=== PATIENT | female | born 1955 | race Caucasian/White ===

== ENCOUNTER 2016-08-01 14:04 | Inpatient (IN) | payer OTHER, MEDICARE, MEDICAID ==
--- NOTE | 2016-08-01 14:14 | ER Document Report ---
ED Medical Screen (RME) - General Stated Complaint: SHAKEY Mode of Arrival: Wheelchair Information source: Patient, Relative - SON Notes: Patient presents to the ED with her son for complaints of confusion shaky. Patient has history of cancer. Son reports she gets like this when her ammonia levels get high. Patient also reports she hasn't taken her medications for the past 3 days. Denies nausea vomiting diarrhea. Reports she just forgot to take her medications. I have greeted and performed a rapid initial assessment of this patient. A comprehensive ED assessment and evaluation of the patient, analysis of test results and completion of the medical decision making process will be conducted by additional ED providers. Physical Exam - Vital signs Vitals: Temp Pulse Resp BP Pulse Ox 98.2 F 101 H 16 156/76 H 100 08/01/16 14:08 08/01/16 14:08 08/01/16 14:08 08/01/16 14:08 08/01/16 14:08 Course - Vital Signs Vital signs: Temp Pulse Resp BP Pulse Ox 98.2 F 101 H 16 156/76 H 100 08/01/16 14:08 08/01/16 14:08 08/01/16 14:08 08/01/16 14:08 08/01/16 14:08
[2016-08-01 14:42] LABS: ABSOLUTE LYMPHOCYTES (AUTO) 1.2 10^3/uL (0.5-4.7); ABSOLUTE MONOCYTES (AUTO) 0.5 10^3/uL (0.1-1.4); ABSOLUTE NEUT (AUTO) 2.7 10^3/uL (1.7-8.2); BASOPHILS % (AUTO) 0.4 % (0-2); HEMATOCRIT 37.8 % (36.0-47.0); HEMOGLOBIN 13.7 g/dL (12.0-15.5); HGB HCT DIFFERENCE 3.3; LYMPHOCYTES % (AUTO) 26.5 % (13-45); MEAN CORPUSCULAR HEMOGLOBIN 37.2 pg (27.0-33.4); MEAN CORPUSCULAR HGB CONC 36.2 g/dL (32.0-36.0); MEAN CORPUSCULAR VOLUME 103 fl (80-97); MONOCYTES % (AUTO) 10.8 % (3-13); RED BLOOD COUNT 3.68 10^6/uL (3.72-5.28); RED CELL DISTRIBUTION WIDTH 14.6 % (11.5-14.0); SEGMENTED NEUTROPHILS % (AUTO) 61.3 % (42-78); WHITE BLOOD COUNT 4.4 10^3/uL (4.0-10.5)
--- NOTE | 2016-08-01 14:54 | ER Document Report ---
ED General - General Chief Complaint: Tremor Stated Complaint: SHAKEY Mode of Arrival: Wheelchair Information source: Patient Notes: 52-year-old female history of liver cancer presents with complaints of family of not acting appropriately being shaky. Patient appears altered Family notes symptoms started this morning. pt does take vicodin, had ismialr episode with elevated ammonia TRAVEL OUTSIDE OF THE [place] IN LAST 30 DAYS: No - HPI Onset: This morning Onset/Duration: Sudden Quality of pain: No pain Severity: Moderate Pain Level: Denies Associated symptoms: Other Exacerbated by: Denies Relieved by: Denies Similar symptoms previously: Yes Recently seen / treated by doctor: Yes - Related Data Allergies/Adverse Reactions: No Known Allergies Allergy (Unverified 08/01/16 14:11) Past Medical History - General Information source: Patient, Relative - SON - Social History Smoking Status: Current Every Day Smoker Cigarette use (# per day): Yes Chew tobacco use (# tins/day): No Smoking Education Provided: No Frequency of alcohol use: former alcohol abuse Drug Abuse: None Family History: Reviewed & Not Pertinent Patient has suicidal ideation: No Patient has homicidal ideation: No Renal/ Medical History: Denies: Hx Peritoneal Dialysis Review of Systems - Review of Systems Notes: REVIEW OF SYSTEMS: CONSTITUTIONAL : Denies fever, chills, or sweats. Denies recent illness. EENT: Denies eye, ear, throat, or mouth pain or symptoms. Denies nasal or sinus congestion or discharge. Denies throat, tongue, or mouth swelling or difficulty swallowing. CARDIOVASCULAR: Denies chest pain. Denies palpitations or racing or irregular heart beat. Denies ankle edema. RESPIRATORY: Denies cough, cold, or chest congestion. Denies shortness of breath, difficulty breathing, or wheezing. GASTROINTESTINAL: Denies abdominal pain or distention. Denies nausea, vomiting , or diarrhea. Denies blood in vomitus, stools, or per rectum. Denies black, tarry stools. Denies constipation. GENITOURINARY: Denies difficulty urinating, painful urination, burning, frequency, blood in urine, or discharge. FEMALE GENITOURINARY: Denies vaginal bleeding, heavy or abnormal periods, irregular periods. Denies vaginal discharge or odor. MUSCULOSKELETAL: Denies back or neck pain or stiffness. Denies joint pain or swelling. SKIN: Denies rash, lesions or sores. HEMATOLOGIC : Denies easy bruising or bleeding. LYMPHATIC: Denies swollen, enlarged glands. NEUROLOGICAL: Confusion PSYCHIATRIC: Denies anxiety or stress. Denies depression, suicidal ideation, or homicidal ideation. ALL OTHER SYSTEMS REVIEWED AND NEGATIVE. Dictation was performed using [employer] voice recognition software PHYSICAL EXAMINATION: GENERAL: Well-appearing, well-nourished and in no acute distress. HEAD: Atraumatic, normocephalic. EYES: Pupils equal round and reactive to light, extraocular movements intact, conjunctiva are normal. ENT: Nares patent, oropharynx clear without exudates. Moist mucous membranes. NECK: Normal range of motion, supple without lymphadenopathy LUNGS: Breath sounds clear to auscultation bilaterally and equal. No wheezes rales or rhonchi. HEART: Regular rate and rhythm without murmurs ABDOMEN: Soft, nontender, nondistended abdomen. No guarding, no rebound. No masses appreciated. Female : deferred Musculoskeletal: Normal range of motion, no pitting or edema. No cyanosis. NEUROLOGICAL: Patient appears quite altered PSYCH: Normal mood, normal affect. SKIN: Warm, Dry, normal turgor, no rashes or lesions noted. Physical Exam - Vital signs Vitals: Temp Pulse Resp BP Pulse Ox 98.2 F 101 H 16 156/76 H 100 08/01/16 14:08 08/01/16 14:08 08/01/16 14:08 08/01/16 14:08 08/01/16 14:08 Course - Re-evaluation Re-evalutation: 08/01/16 14:54 Patient is having no respiratory distress, however given her altered mental status lab work is pending emergent CT of the head was performed 08/01/16 15:11 08/01/16 15:12 Patient's ammonia level is noted to be elevated 08/01/16 15:29 - Vital Signs Vital signs: Temp Pulse Resp BP Pulse Ox 98.2 F 101 H 11 L 101/56 L 97 08/01/16 14:08 08/01/16 14:08 08/01/16 14:52 08/01/16 15:00 08/01/16 15:00 - Laboratory Result Diagrams: 08/01/16 14:25 08/01/16 14:25 Laboratory results interpreted by me: 08/01/16 08/01/16 08/01/16 14:22 14:25 14:25 RBC 3.68 L MCV 103 H MCH 37.2 H MCHC 36.2 H RDW 14.6 H Plt Count 93 L Glucose 381 H POC Glucose Calcium 10.8 H Total Bilirubin 3.0 H AST 87 H ALT 67 H Alkaline Phosphatase 332 H Ammonia Creatine Kinase 400 H CK-MB (CK-2) Urine Glucose (UA) >=500 H Urine Ketones 20 H Urine Urobilinogen 2.0 H 08/01/16 08/01/16 08/01/16 14:25 14:25 14:26 RBC MCV MCH MCHC RDW Plt Count Glucose POC Glucose 363 H Calcium Total Bilirubin AST ALT Alkaline Phosphatase Ammonia 61.9 H Creatine Kinase CK-MB (CK-2) 4.96 H Urine Glucose (UA) Urine Ketones Urine Urobilinogen Discharge - Discharge Clinical Impression: Increased ammonia level Altered mental status Qualifiers: Altered mental status type: unspecified Qualified Code(s): R41.82 - Altered mental status, unspecified Condition: Stable Disposition: ADMITTED INPATIENT Admitting Provider: Hospitalist Unit Admitted: Telemetry
[2016-08-01 14:55] LABS: APPEARANCE,URINE SLIGHTLY-CLOUDY; BILIRUBIN,URINE NEGATIVE (NEGATIVE); GLUCOSE, URINE >=500 mg/dL (NEGATIVE); KETONES,URINE 20 mg/dL (NEGATIVE); LEUKOCYTE ESTERASE,URINE NEGATIVE (NEGATIVE); NITRITE,URINE NEGATIVE (NEGATIVE); PROTEIN,URINE NEGATIVE (NEGATIVE); URINE SPECIFIC GRAVITY 1.032
[2016-08-01] MEDS: NORMAL SALINE 1000 ML 1,000 ML IV PRN ×3 (14:56→17:31)
[2016-08-01 15:00] LABS: ALANINE AMINOTRANSFERASE 67 U/L (9-52); ALBUMIN 4.2 g/dL (3.5-5.0); ALKALINE PHOSPHATASE 332 U/L (38-126); ANION GAP 14 (5-19); ASPARTATE AMINO TRANSFERASE 87 U/L (14-36); BLOOD UREA NITROGEN 10 mg/dL (7-20); CALCIUM 10.8 mg/dL (8.4-10.2); CARBON DIOXIDE 23 mmol/L (22-30); CHLORIDE 103 mmol/L (98-107); CREATINE KINASE 400 U/L (30-135); CREATININE RESULT 0.55 mg/dL (0.52-1.25); GLUCOSE 381 mg/dL (75-110); POTASSIUM 3.9 mmol/L (3.6-5.0); SODIUM 139.6 mmol/L (137-145); TOTAL PROTEIN 7.4 g/dL (6.3-8.2)
[2016-08-01] MEDS ORDERED: LACTULOSE SYRUP 20 GM/30 ML UDCUP PO ONE (15:11)
[2016-08-01 15:12] LABS: CREATINE KINASE MB 4.96 ng/mL (<4.55); TROPONIN I 0.012 ng/mL
[2016-08-01] MEDS ORDERED: ONDANSETRON HCL INJ/PF 4 MG/2 ML SDV IV PRN (16:31)
[2016-08-01 16:51] LABS: PROTHROMBIN TIME 13.9 SEC (11.4-15.4)
--- NOTE | 2016-08-01 17:19 | PDOC H&P ---
History of Present Illness Admission Date/PCP: 08/01/16 15:42 Patient complains of: Altered mental status History of Present Illness: JENNIFER POLANCO is a 60 year old female, with history of liver cirrhosis, portal hypertension, esophageal varices, hepatoma, brought to the hospital by the family due to alteration in level of consciousness. Patient apparently has not taken her medication for the past 3-4 days. She was started to have confusion intermittently in today the patient is less responsive and sleeping most of the time. There is no reported chills or fever. No reported diarrhea. No reported sinus congestion or shortness of breath or coughing. Patient had prior elevation in ammonia level in the family suspects similar incident therefore she was brought to the hospital where ammonia level found to be in the 60s. The patient was given lactulose and was referred for admission. The patient still able to answer some questions but easily falls back to sleep. There is no reported melena, hematemesis, dizziness or lightheadedness. Past Medical History Past Medical History: Medication reconciliation pending verification from the patient's pharmacist. 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 Hx Recreational Drug Use: No Drugs: None Family History Family History: None Parental Family History Reviewed: Yes Children Family History Reviewed: Yes Sibling(s) Family History Reviewed.: Yes Medication/Allergy Allergies/Adverse Reactions: No Known Allergies Allergy (Unverified 08/01/16 14:11) Review of Systems ROS unobtainable: Due to mental status - Patient lethargic and unable to give more information. Reliability is in question as well due to encephalopathy. Other than provided by the family no other information available at this time. Physical Exam Vital Signs: Temp Pulse Resp BP Pulse Ox 98.1 F 101 H 10 L 117/60 98 08/01/16 17:05 08/01/16 14:08 08/01/16 16:01 08/01/16 16:00 08/01/16 16:01 General appearance: PRESENT: no acute distress, thin Head exam: PRESENT: atraumatic, normocephalic Eye exam: PRESENT: conjunctiva pale, EOMI, PERRLA. ABSENT: scleral icterus Ear exam: PRESENT: normal external ear exam. ABSENT: drainage Mouth exam: PRESENT: dry mucosa, neck supple Throat exam: PRESENT: other - Unable to cooperate at this time Neck exam: ABSENT: carotid bruit, JVD, lymphadenopathy, thyromegaly Respiratory exam: PRESENT: clear to auscultation kimi. ABSENT: rales, rhonchi, wheezes Cardiovascular exam: PRESENT: RRR, +S1, +S2. ABSENT: diastolic murmur, gallop, rubs, systolic murmur Pulses: PRESENT: normal dorsalis pedis pul Vascular exam: PRESENT: normal capillary refill GI/Abdominal exam: PRESENT: hypoactive bowel sounds, normal bowel sounds, soft. ABSENT: distended, guarding, mass, organolmegaly, rebound, tenderness Rectal exam: PRESENT: deferred Extremities exam: PRESENT: full ROM. ABSENT: calf tenderness, clubbing, pedal edema Neurological exam: PRESENT: altered - Neurologic lethargic, opens eyes occasionally answers questions but is to be post back to sleep Psychiatric exam: PRESENT: flat affect. ABSENT: agitated, anxious, homicidal ideation, suicidal ideation Focused psych exam: ABSENT: restlessness Skin exam: PRESENT: dry, intact, warm. ABSENT: cyanosis, rash Results Impressions: Head CT 08/01/16 14:10 IMPRESSION: No acute intracranial findings. Assessment & Plan - Diagnosis (1) Hepatic encephalopathy Is this a current diagnosis for this admission?: Yes (2) Dehydration Is this a current diagnosis for this admission?: Yes (3) Hypercalcemia Is this a current diagnosis for this admission?: Yes (4) Thrombocytopenia Is this a current diagnosis for this admission?: Yes (5) Type 2 diabetes mellitus with hyperglycemia Qualifiers: Diabetes mellitus chcf insulin use: without chcf use Qualified Code(s): E11.65 - Type 2 diabetes mellitus with hyperglycemia Is this a current diagnosis for this admission?: Yes (6) Liver cirrhosis Qualifiers: Hepatic cirrhosis type: alcoholic cirrhosis Ascites presence: without ascites Qualified Code(s): K70.30 - Alcoholic cirrhosis of liver without ascites Is this a current diagnosis for this admission?: Yes (7) Esophageal varices Qualifiers: Esophageal varices type: unspecified type Esophageal varices bleeding: without bleeding Qualified Code(s): I85.00 - Esophageal varices without bleeding Is this a current diagnosis for this admission?: Yes (8) Hyperlipidemia Qualifiers: Hyperlipidemia type: unspecified Qualified Code(s): E78.5 - Hyperlipidemia, unspecified Is this a current diagnosis for this admission?: Yes (9) History of liver cancer Is this a current diagnosis for this admission?: Yes (10) Chronic pain syndrome Is this a current diagnosis for this admission?: Yes - Time Time Spent: 30 to 50 Minutes - Inpatient Certification Based on my medical assessment, after consideration of the patient's comorbidities, presenting symptoms, or acuity I expect that the services needed warrant INPATIENT care.: Yes I certify that my determination is in accordance with my understanding of Medicare's requirements for reasonable and necessary INPATIENT services [42 CFR 412.3e].: Yes Medical Necessity: Significant Comorbidiites Make Outpatient Treatment Too Risky , Need Close Monitoring Due to Risk of Patient Decompensation, Need For IV Fluids, Need for Neurological Checks, Risk of Complication if Not Cared For in Hospital Post Hospital Care: D/C Load Dispatcher Documentation - Plan Summary Plan Summary: The patient will be admitted to [facility]. We will hydrate the patient with normal saline, monitor creatinine, and serum calcium level. In the meantime I will put the patient on lactulose every 2 hours until the diarrhea and then titrate subsequently until the patient's ammonia level normalized. I will add rifaximin through the treatment regimen as well. We will obtain a hemoglobin A1c, put the patient on sliding scale insulin. FUAD hose and SCDs will be placed for DVT prophylaxis. We will obtain coagulation panel and monitor hematocrit. Further testing and bands on initial evaluation as outlined above.
[2016-08-01 18:28] LABS: URINE BARBITURATES SCREEN NEGATIVE; URINE METHADONE SCREEN NEGATIVE; URINE PHENCYCLIDINE SCREEN NEGATIVE
[2016-08-01 18:32] LABS: URINE OPIATES LOW UNCONFIRMED POSITIVE
[2016-08-01] MEDS ORDERED: RIFAXIMIN 550 MG TABLET ONE (18:48)
[2016-08-01] MEDS: LANSOPRAZOLE 30 MG TAB.RAP.DR PO SCH (18:53)
[2016-08-01] MEDS: LACTULOSE SYRUP 20 GM/30 ML UDCUP PO SCH ×3 (18:54→22:46)
[2016-08-01] MEDS: RIFAXIMIN 550 MG TABLET PO SCH (18:56)
[2016-08-01] MEDS ORDERED: DEXTROSE 50%-WATER 25 GM/50 ML DISP.SYRIN IV PRN ×2 (23:05)
[2016-08-01] MEDS ORDERED: DEXTROSE 40% GEL 15 GM TUBE PO PRN ×2 (23:05)
[2016-08-01] MEDS ORDERED: GLUCAGON,HUMAN RECOMB 1 MG INJ IM PRN (23:05)
[2016-08-01] MEDS: INSULIN LISPRO 100 UNIT/ML 3 ML VIAL SUBCUT PRN (23:27)
[2016-08-02] MEDS: LACTULOSE SYRUP 20 GM/30 ML UDCUP PO SCH ×5 (00:56→21:25)
[2016-08-02] MEDS: NORMAL SALINE 1000 ML 1,000 ML IV PRN ×2 (01:43→09:39)
[2016-08-02 05:11] LABS: ABSOLUTE EOSINOPHILS # (AUTO) 0.1 10^3/uL (0.0-0.6); ABSOLUTE MONOCYTES (AUTO) 0.4 10^3/uL (0.1-1.4); ABSOLUTE NEUT (AUTO) 2.3 10^3/uL (1.7-8.2); BASOPHILS % (AUTO) 0.6 % (0-2); EOSINOPHILS % (AUTO) 1.9 % (0-6); HEMATOCRIT 33.5 % (36.0-47.0); HEMOGLOBIN 12.1 g/dL (12.0-15.5); HGB HCT DIFFERENCE 2.8; LYMPHOCYTES % (AUTO) 26.5 % (13-45); MEAN CORPUSCULAR HEMOGLOBIN 37.2 pg (27.0-33.4); MEAN CORPUSCULAR HGB CONC 36.1 g/dL (32.0-36.0); MEAN CORPUSCULAR VOLUME 103 fl (80-97); MONOCYTES % (AUTO) 9.5 % (3-13); RED BLOOD COUNT 3.25 10^6/uL (3.72-5.28); RED CELL DISTRIBUTION WIDTH 14.3 % (11.5-14.0); SEGMENTED NEUTROPHILS % (AUTO) 61.5 % (42-78); WHITE BLOOD COUNT 3.7 10^3/uL (4.0-10.5)
[2016-08-02 05:28] LABS: ALANINE AMINOTRANSFERASE 60 U/L (9-52); ALKALINE PHOSPHATASE 207 U/L (38-126); ANION GAP 11 (5-19); ASPARTATE AMINO TRANSFERASE 73 U/L (14-36); BILIRUBIN,TOTAL 2.1 mg/dL (0.2-1.3); BLOOD UREA NITROGEN 8 mg/dL (7-20); CALCIUM 9.1 mg/dL (8.4-10.2); CARBON DIOXIDE 20 mmol/L (22-30); CHLORIDE 113 mmol/L (98-107); CREATININE RESULT 0.51 mg/dL (0.52-1.25); GLUCOSE 238 mg/dL (75-110); MAGNESIUM 1.7 mg/dL (1.6-2.3); PHOSPHORUS 2.7 mg/dL (2.5-4.5); POTASSIUM 3.1 mmol/L (3.6-5.0); SODIUM 143.7 mmol/L (137-145); TOTAL PROTEIN 5.8 g/dL (6.3-8.2)
[2016-08-02] MEDS: LANSOPRAZOLE 30 MG TAB.RAP.DR PO SCH ×2 (05:56→17:51)
--- NOTE | 2016-08-02 08:16 | PDOC PROGRESS REPORT ---
Subjective Progress Note for:: 08/02/16 Subjective:: Patient is more awake and alert this morning. Patient had frequent stools from the lactulose. No temperature spikes, respiratory distress, nausea or vomiting. Patient complains of some coughing but no congestion. Physical Exam Vital Signs: Temp Pulse Resp BP Pulse Ox 98.5 F 79 11 L 130/57 H 96 08/02/16 03:54 08/02/16 04:00 08/02/16 04:00 08/02/16 04:00 08/02/16 04:00 Intake & Output 08/01/16 08/02/16 08/03/16 06:59 06:59 06:59 Intake Total 1555 Output Total 929 Balance 626 Weight 57.9 kg General appearance: PRESENT: no acute distress, cooperative, thin Head exam: PRESENT: normocephalic Eye exam: PRESENT: conjunctiva pale, EOMI Mouth exam: PRESENT: moist, neck supple Neck exam: ABSENT: JVD Respiratory exam: PRESENT: clear to auscultation kimi. ABSENT: rhonchi, wheezes Cardiovascular exam: PRESENT: RRR. ABSENT: gallop GI/Abdominal exam: PRESENT: hyperactive bowel sounds, soft. ABSENT: distended Extremities exam: ABSENT: pedal edema Neurological exam: PRESENT: alert, awake, oriented to situation Skin exam: PRESENT: dry, warm. ABSENT: cyanosis Results Laboratory Results: 08/02/16 04:50 08/02/16 04:50 08/02/16 08/02/16 08/02/16 04:50 04:50 04:50 WBC 3.7 L RBC 3.25 L Hgb 12.1 Hct 33.5 L MCV 103 H MCH 37.2 H MCHC 36.1 H RDW 14.3 H Plt Count 73 L Seg Neutrophils % 61.5 Lymphocytes % 26.5 Monocytes % 9.5 Eosinophils % 1.9 Basophils % 0.6 Absolute Neutrophils 2.3 Absolute Lymphocytes 1.0 Absolute Monocytes 0.4 Absolute Eosinophils 0.1 Absolute Basophils 0.0 Sodium 143.7 Potassium 3.1 L Chloride 113 H Carbon Dioxide 20 L Anion Gap 11 BUN 8 Creatinine 0.51 L Est GFR ( Amer) > 60 Est GFR (Non-Af Amer) > 60 Glucose 238 H Calcium 9.1 Phosphorus 2.7 Magnesium 1.7 Total Bilirubin 2.1 H AST 73 H ALT 60 H Alkaline Phosphatase 207 H Ammonia 34.4 H Total Protein 5.8 L Albumin 3.0 L Impressions: Head CT 08/01/16 14:10 IMPRESSION: No acute intracranial findings. Assessment & Plan - Diagnosis (1) Hepatic encephalopathy Is this a current diagnosis for this admission?: Yes (2) Dehydration Is this a current diagnosis for this admission?: Yes (3) Hypercalcemia Is this a current diagnosis for this admission?: Yes (4) Thrombocytopenia Is this a current diagnosis for this admission?: Yes (5) Type 2 diabetes mellitus with hyperglycemia Qualifiers: Diabetes mellitus senior living insulin use: without senior living use Qualified Code(s): E11.65 - Type 2 diabetes mellitus with hyperglycemia Is this a current diagnosis for this admission?: Yes (6) Liver cirrhosis Qualifiers: Hepatic cirrhosis type: alcoholic cirrhosis Ascites presence: without ascites Qualified Code(s): K70.30 - Alcoholic cirrhosis of liver without ascites Is this a current diagnosis for this admission?: Yes (7) Esophageal varices Qualifiers: Esophageal varices type: unspecified type Esophageal varices bleeding: without bleeding Qualified Code(s): I85.00 - Esophageal varices without bleeding Is this a current diagnosis for this admission?: Yes (8) Hyperlipidemia Qualifiers: Hyperlipidemia type: unspecified Qualified Code(s): E78.5 - Hyperlipidemia, unspecified Is this a current diagnosis for this admission?: Yes (9) History of liver cancer Is this a current diagnosis for this admission?: Yes (10) Chronic pain syndrome Is this a current diagnosis for this admission?: Yes - Time Time Spent with patient: 25-34 minutes - Plan Summary Plan Summary: We are going to replace potassium. Start Levaquin for urinary infection. Continue lactulose and recheck ammonia level in the morning. Monitor electrolytes.
[2016-08-02] MEDS ORDERED: NORMAL SALINE 1000 ML 1,000 ML IV PRN (08:20)
[2016-08-02] MEDS: INSULIN LISPRO 100 UNIT/ML 3 ML VIAL SUBCUT PRN ×3 (09:36→22:26)
[2016-08-02] MEDS: RIFAXIMIN 550 MG TABLET PO SCH ×2 (09:37→17:51)
[2016-08-02] MEDS ORDERED: BENZONATATE 100 MG CAPSULE PO ONE (10:00)
[2016-08-02] MEDS: POTASSI CL 20 MEQ/50 ML RIDER 20 MEQ/50 ML RTUPB IV SCH ×3 (11:30→15:55)
[2016-08-02] MEDS: BENZONATATE 100 MG CAPSULE PO SCH ×2 (13:20→21:25)
[2016-08-02] MEDS: LEVOFLOXACIN 750 MG TABLET PO SCH (17:51)
[2016-08-03] MEDS: LACTULOSE SYRUP 20 GM/30 ML UDCUP PO SCH ×2 (02:36→11:18)
[2016-08-03 05:34] LABS: ANION GAP 11 (5-19); BLOOD UREA NITROGEN 9 mg/dL (7-20); CALCIUM 9.6 mg/dL (8.4-10.2); CARBON DIOXIDE 19 mmol/L (22-30); CHLORIDE 109 mmol/L (98-107); CREATININE RESULT 0.54 mg/dL (0.52-1.25); GLUCOSE 314 mg/dL (75-110); POTASSIUM 3.8 mmol/L (3.6-5.0); SODIUM 139.1 mmol/L (137-145)
[2016-08-03] MEDS: BENZONATATE 100 MG CAPSULE PO SCH (05:53)
[2016-08-03] MEDS: LANSOPRAZOLE 30 MG TAB.RAP.DR PO SCH (05:53)
[2016-08-03] MEDS: RIFAXIMIN 550 MG TABLET PO SCH (11:18)
[2016-08-03] MEDS: LEVOFLOXACIN 750 MG TABLET PO SCH (11:25)
[2016-08-03] MEDS: INSULIN LISPRO 100 UNIT/ML 3 ML VIAL SUBCUT PRN (11:41)
--- NOTE | 2016-08-03 13:59 | PDOC DISCHARGE SUMMARY ---
General - Admit/Disc Date/PCP Admission Date/Primary Care Provider: 08/01/16 16:23 Discharge Date: 08/03/16 - Discharge Diagnosis (1) Hepatic encephalopathy Is this a current diagnosis for this admission?: Yes (2) Dehydration Is this a current diagnosis for this admission?: Yes (3) Hypercalcemia Is this a current diagnosis for this admission?: Yes (4) Thrombocytopenia Is this a current diagnosis for this admission?: Yes (5) Type 2 diabetes mellitus with hyperglycemia Is this a current diagnosis for this admission?: Yes (6) Liver cirrhosis Is this a current diagnosis for this admission?: Yes (7) Esophageal varices Is this a current diagnosis for this admission?: Yes (8) Hyperlipidemia Is this a current diagnosis for this admission?: Yes (9) History of liver cancer Is this a current diagnosis for this admission?: Yes (10) Chronic pain syndrome Is this a current diagnosis for this admission?: Yes - Additional Information Resuscitation Status: Full Code Discharge Diet: Diabetic - no concentrated sweets, Other (Comments) - low-salt Discharge Activity: Activity As Tolerated, Balance Activity w/Rest, Slowly Increase Activity Home Medications: Amlodipine Besylate [Norvasc 5 mg Tablet] 5 mg PO DAILY 08/03/16 Escitalopram Oxalate [Lexapro] 5 mg PO DAILY 08/03/16 Hydrocodone Bit/Acetaminophen [Hydrocodon-Acetaminophen 5-325] 1 tab PO Q8HP PRN 08/03/16 Lactulose [Cephulac 20 gm/30 ml Syrup UD Cup] 20 gm PO Q6H #120 udc 08/03/16 Levofloxacin [Levaquin 750 mg Tablet] 750 mg PO DAILY #3 tablet 08/03/16 Lisinopril [Prinivil] 20 mg PO DAILY 08/03/16 Pantoprazole Sodium [Protonix] 40 mg PO DAILY 08/03/16 Sitagliptin Phosphate [Januvia] 100 mg PO DAILY 08/03/16 Tizanidine HCl [Zanaflex] 2 mg PO QHS 08/03/16 Additional Information: Return to emergency room if symptoms recur. Repeat ammonia level outpatient with primary care physician in 1 week. History of Present Illness Patient complains of: Altered mental status History of Present Illness: JENNFIER POLANCO is a 60 year old female, with history of liver cirrhosis, portal hypertension, esophageal varices, hepatoma, brought to the hospital by the family due to alteration in level of consciousness. Patient apparently has not taken her medication for the past 3-4 days. She was started to have confusion intermittently in today the patient is less responsive and sleeping most of the time. There is no reported chills or fever. No reported diarrhea. No reported sinus congestion or shortness of breath or coughing. Patient had prior elevation in ammonia level in the family suspects similar incident therefore she was brought to the hospital where ammonia level found to be in the 60s. The patient was given lactulose and was referred for admission. The patient still able to answer some questions but easily falls back to sleep. There is no reported melena, hematemesis, dizziness or lightheadedness. Hospital Course Hospital Course: The patient was admitted to telemetry. The patient was started on intravenous fluids. Lactulose was started every 2 hours until the patient developed diarrhea. However the patient noted to have urinary tract infection and therefore antibiotic was likewise started. With the above measures the patient' s mental status significantly improved the following day. Ammonia level initially was trending down but it went up on the day of discharge. However the patient's mental status continues to improve. Family was therefore educated that likely it is multifactorial record and just the ammonia level except. Likely contributing factors include medication and infection. The patient was adamant about leaving the hospital and wants to go home. Family was supportive about her decision and wants her to leave as well. They were therefore instructed that if her symptoms of altered mental status recovers her back to the hospital. There were advised to continue the lactulose. Rifaximin was likewise added. Physical Exam Vital Signs: Temp Pulse Resp BP Pulse Ox 97.6 F 89 16 141/67 H 100 08/03/16 08:14 08/03/16 08:14 08/03/16 08:14 08/03/16 08:14 08/03/16 08:14 Intake & Output 08/02/16 08/03/16 08/04/16 06:59 06:59 06:59 Intake Total 1555 4026 575 Output Total 929 1080 1200 Balance 054 7657 -707 Weight 57.9 kg 58.2 kg General appearance: PRESENT: no acute distress, cooperative Head exam: PRESENT: normocephalic Eye exam: PRESENT: EOMI Mouth exam: PRESENT: moist, neck supple Neck exam: ABSENT: JVD Respiratory exam: PRESENT: clear to auscultation kimi Cardiovascular exam: PRESENT: RRR GI/Abdominal exam: PRESENT: soft. ABSENT: guarding, tenderness Extremities exam: ABSENT: pedal edema Neurological exam: PRESENT: alert, awake, oriented to person, oriented to place , oriented to time, oriented to situation Skin exam: PRESENT: dry, warm. ABSENT: cyanosis Results Laboratory Results: 08/02/16 04:50 08/03/16 04:44 08/03/16 08/03/16 04:44 04:44 Sodium 139.1 Potassium 3.8 Chloride 109 H Carbon Dioxide 19 L Anion Gap 11 BUN 9 Creatinine 0.54 Est GFR ( Amer) > 60 Est GFR (Non-Af Amer) > 60 Glucose 314 H Calcium 9.6 Ammonia 59.8 H Impressions: Head CT 08/01/16 14:10 IMPRESSION: No acute intracranial findings. Chest X-Ray 08/02/16 00:00 IMPRESSION: NO ACUTE RADIOGRAPHIC FINDING IN THE CHEST. Qualifiers PATEINT BEING DISCHARGED WITH ANY OF THE FOLLOWING DIAGNOSIS?: No Plan Discharge Plan: Follow-up with primary care physician in one week. Time Spent: Less than 30 Minutes
[2016-08-03 14:08] VITALS: BP 121/60
== END 2016-08-03 14:23 | disposition home or self-care (01) | DRG 442 ==
LOC: ER 14:04 → EH 15:42 → UNDOADMIN 15:42 → EH 16:23 → 3N 21:30
DX: K72.90 Hepatic failure, unspecified without coma (principal); I85.10 Secondary esophageal varices without bleeding; K76.6 Portal hypertension; E86.0 Dehydration; E83.52 Hypercalcemia; D69.6 Thrombocytopenia, unspecified; E11.65 Type 2 diabetes mellitus with hyperglycemia; E78.5 Hyperlipidemia, unspecified; G89.4 Chronic pain syndrome; F17.210 Nicotine dependence, cigarettes, uncomplicated; K70.30 Alcoholic cirrhosis of liver without ascites; Z85.05 Personal history of malignant neoplasm of liver; Z79.899 Other long term (current) drug therapy
CPT/HCPCS: 36415; 70450; 71010; 80048; 80053; 80076; 80307; 81001; 82140; 82550; 82553; 82962; 83036; 83735; 84100; 84443; 84484; 85025; 85610; 85730; 87086; 87088; 87186; 99285; A9270-GY; J1815; J3480; J7030

== ENCOUNTER → 2016-09-10 | Outpatient (CLI) | payer OTHER, MEDICARE | LOC: RAD 10:06 | PROVIDERS: ATTEND Specialist | DX: C82.38 Follicular lymphoma grade IIIa, lymph nodes of multiple sites (principal); C22.0 Liver cell carcinoma | CPT/HCPCS: 71260; 74160 ==